=== PATIENT | male | born 1985 | race Caucasian/White ===

== ENCOUNTER 2018-09-23 21:40 | Emergency (ER) | payer OTHER ==
[2018-09-23 21:55] VITALS: O2SAT 99
[2018-09-23] MEDS ORDERED: SULFA/TRIMETH 800/160 (DS) TAB 1 EA TAB PO ONE (21:59)
--- NOTE | 2018-09-23 22:01 | ED.PDOC ---
History of Present Illness - General Chief Complaint: Bite: Animal/Insect/Human Stated Complaint: possible insect bite Time Seen by Provider: 09/23/18 21:59 Source: patient Exam Limitations: no limitations - History of Present Illness Initial Comments: the patient is 33-year-old male presenting with what appears to be a mild cellulitis surrounding an insect bite to his inner left thigh. It is been present for about 3 days. Mild drainage. No obvious underlying abscess. No fever. No other areas of concern. Timing/Duration: other - 3 days Severity: mild Improving Factors: nothing Worsening Factors: nothing Associated Symptoms: denies symptoms Allergies/Adverse Reactions: Allergies Ciprofloxacin [From Cipro] Allergy (Verified 09/23/18 21:57) Home Medications: Ambulatory Orders Sulfa/Trimeth 800/160 (Ds) Tab [Bactrim DS Tab] 1 ea PO BID #10 tab 09/23/18 Review of Systems - Review of Systems Constitutional: States: no symptoms reported EENTM: States: no symptoms reported Respiratory: States: no symptoms reported Cardiology: States: no symptoms reported Gastrointestinal/Abdominal: States: no symptoms reported Genitourinary: States: no symptoms reported Musculoskeletal: States: no symptoms reported Skin: States: see HPI Neurological: States: no symptoms reported Endocrine: States: no symptoms reported All other Systems: No Change from Baseline Past Medical History (General) - Patient Medical History Hx Diabetes: No Hx MRSA: No - Vaccination History Hx Tetanus, Diphtheria Vaccination: Yes - 9 yrs Family Medical History - Family History Father Family History: Unknown Physical Exam - Physical Exam General Appearance: Alert, Comfortable, No apparent distress Eye Exam: bilateral normal Ears, Nose, Throat: hearing grossly normal Neck: full range of motion, supple Respiratory: normal breath sounds, no respiratory distress Cardiovascular/Chest: normal peripheral pulses, no edema Peripheral Pulses: radial,right: 2+, radial,left: 2+ Rectal Exam: deferred Extremity: normal range of motion, no pedal edema, normal capillary refill Neurologic: fisher quahog II-XII nml as tested, alert, normal mood/affect, oriented x 3 Skin Exam: other - see history of present illness Comments: Vital Signs - 24 hr 09/23/18 21:51 Temperature 97.9 F Pulse Rate [ 85 Left] Respiratory 16 Rate Blood Pressure 133/92 [Right Arm] O2 Sat by Pulse 99 Oximetry Progress - Progress Progress: 09/23/18 22:00 the patient is a 33-year-old male presenting with a small area of cellulitis likely surrounding an insect bite to the left inner thigh. No obvious abscess formation at this time. He has been placed on Bactrim and will be on that for the next 5 days. ER warnings were given for any worsening. Keep routine follow-up with primary care doctor otherwise. Take Bactrim on a full stomach and avoid taking it with alcohol. Departure - Departure Clinical Impression: Cellulitis Qualifiers: Site of cellulitis: extremity Site of cellulitis of extremity: lower extremity Laterality: left Qualified Code(s): L03.116 - Cellulitis of left lower limb Disposition: Discharge to Home or Self Care Departure Forms: ED Discharge - Pt. Copy, Patient Portal Self Enrollment Instructions: DI for Insect Bites and Stings Diet: regular diet Activity: increase activity as tolerated Referrals: Elijah Roy MD [Primary Care Provider] - 1-2 Weeks Prescriptions: Sulfa/Trimeth 800/160 (Ds) Tab [Bactrim DS Tab] 1 ea PO BID #10 tab Home Medications: Ambulatory Orders Sulfa/Trimeth 800/160 (Ds) Tab [Bactrim DS Tab] 1 ea PO BID #10 tab 09/23/18 Additional Instructions: the patient is a 33-year-old male presenting with a small area of cellulitis likely surrounding an insect bite to the left inner thigh. No obvious abscess formation at this time. He has been placed on Bactrim and will be on that for the next 5 days. ER warnings were given for any worsening. Keep routine follow-up with primary care doctor otherwise. Take Bactrim on a full stomach and avoid taking it with alcohol.
[2018-09-23 22:13] VITALS: BP 128/89; TEMP 97.8
== END 2018-09-23 22:13 | disposition home or self-care (01) ==
LOC: ER 21:40
DX: L03.116 Cellulitis of left lower limb (principal); Z88.1 Allergy status to other antibiotic agents